=== PATIENT | female | born 1985 | race Caucasian/White ===

== ENCOUNTER 2024-06-10 09:56 | Emergency (ER) | payer OTHER ==
[~2024-06-10] VITALS: Ht 170.2 cm; Wt 106.8 kg
[~2024-06-10 09:56] MED LIST: ATIVAN 1MG T1 MG/TAB PO; BCP TD; CELEBREX 200MG200 MG PO; CEPHALEXIN500 M1 PO; CIPRO 500MG TA500 MG PO; CLARITIN; COLACE 100100 MG/CAP PO; CYMBALTA 60MG60 MG PO; DESYREL 50MG50 MG PO; DIFLUCAN 100MG100 MG PO; DIFLUCAN150 MG PO; EFFEXOR 75M75 MG/TAB PO; FLAGYL500 MG PO; FLEXERIL 1010 MG/TAB PO; FLOMAX 0.40.4 MG/CAP PO; FLOVENT0.11 MG/AC IH; HIBICLENS TP; MELAT3MGTAB PO; MIRALAX PA17 GM/Dose PO; MYSOLINE 5050 MG/TAB PO; NEURONTIN300 MG/CAP PO; NORCO 325 MG-51 TAB PO; NUVARING1 ICR VG; OXY IR5 MG PO; OYSTER SHELL C500 M2 PO; PERCOCET 325 MG1 TA2 PO; PHENERGAN 25 TA25 MG PO; PRENATAL VITAMI1 TAB PO; PROTONIX 40MG T40 MG PO; RT ADVAIR HFA 1112 G IH; RT ADVAIR HFA 412 GM IH; SEPTRA DS 8001 TAB PO; TYLENOL 8 HR PO; VENTOLIN0.09 MG IH; VICODIN 5/5001 UDTAB PO; VITAMIN D 1001000 IU PO; WELLBUTRIN SR150 M1 PO; YAZ 28 3 MG-0.01 TAB PO; ZOFRAN ODT4 MG PO
[2024-06-10 10:00] VITALS: TEMP 98.6
[2024-06-10 10:27] LABS: COLLECTION METHOD CLEAN CATCH
[2024-06-10] MEDS ORDERED: NS 1,000 ML IV ONE (10:30)
[2024-06-10] MEDS ORDERED: Ondansetron 4 MG/2 ML VIAL IV ONE (10:30)
[2024-06-10] MEDS ORDERED: fentaNYL 50 MCG/ML 2 ML VIAL IV ONE (10:30)
[2024-06-10 10:38] LABS: URINE APPEARANCE CLEAR (CLEAR/HAZY); URINE COLOR YELLOW (YELLOW); URINE GLUCOSE Negative (NEGATIVE); URINE PROTEIN(semi-quant) Negative (NEGATIVE)
[2024-06-10 10:39] LABS: URINE BLOOD 3+ (NEGATIVE); URINE KETONE NEGATIVE (NEGATIVE); URINE NITRATE NEGATIVE (NEGATIVE); URINE UROBILINOGEN 0.2 E.U/dL (0.2-1.0)
[2024-06-10 11:03] LABS: BASO # 0.1 K/mm3 (0.0-0.2); BASO % 0.7 % (0.0-2.0); EOS # 0.1 K/mm3 (0.0-0.7); EOS % 1.2 % (0.0-4.0); GRAN # 5.7 K/mm3 (1.4-6.5); GRAN % 69.5 % (42.2-75.2); HEMATOCRIT 40.9 % (37.0-47.0); HEMOGLOBIN 13.5 g/dl (12.5-16.0); LYMPH # 1.8 K/mm3 (1.2-3.4); LYMPH % 22.4 % (20.0-51.0); MEAN CELL VOLUME 89 fl (80.0-100.0); MEAN CORPUSCULAR HEMOGLOBIN 30 pg (27-31); MEAN CORPUSCULAR HGB CONC 33 g/dl (33.0-37.0); MEAN PLATELET VOLUME 9.9 fl (7.4-10.4); MONO # 0.5 K/mm3 (0.1-0.6); PLATELET COUNT 296 K/mm3 (130-400); RED BLOOD COUNT 4.58 M/mm3 (4.10-5.30); REDCELL DISTRIBUTION WIDTH-CV 12.9 % (11.5-14.5)
[2024-06-10 11:25] LABS: ALBUMIN 3.8 g/dL (3.5-5.0); BILIRUBIN,TOTAL 0.3 mg/dL (0.2-1.2); CALCIUM 9.1 mg/dL (8.4-10.2); CREATININE, serum 0.84 mg/dL (0.57-1.11); POTASSIUM 4.2 mEq/L (3.5-4.5); TOTAL PROTEIN 6.9 g/dl (6.2-8.1)
[2024-06-10] MEDS ORDERED: Iohexol 300 - 100 ML VIAL IV ONE (12:05)
[2024-06-10] MEDS ORDERED: NS 100 ML IV SCH (12:06)
[2024-06-10] MEDS ORDERED: NORCO 325 MG-51 TAB PO (13:41)
[2024-06-10 13:55] VITALS: BP 140/106; PULSE 80
== END 2024-06-10 14:00 | disposition home or self-care (01) ==
LOC: COL.ER 09:56
PROVIDERS: Nurse Practitioner
DX: N20.1 Calculus of ureter (principal); Z87.442 Personal history of urinary calculi
CPT/HCPCS: J2405; J3010; J7030; Q9967

== ENCOUNTER 2024-06-15 09:21 | Emergency (ER) | payer OTHER ==
[~2024-06-15] VITALS: Ht 170.2 cm; Wt 106.8 kg
[2024-06-15 09:29] VITALS: TEMP 98.3
[2024-06-15] MEDS ORDERED: NS 1,000 ML IV ONE (10:15)
[2024-06-15] MEDS ORDERED: fentaNYL 50 MCG/ML 2 ML VIAL IV ONE (10:15)
[2024-06-15] MEDS ORDERED: Ketorolac 30 MG/ML VIAL IV ONE (10:15)
[2024-06-15 10:23] LABS: COLLECTION METHOD CLEAN CATCH
[2024-06-15 10:23] LABS: BASO # 0.1 K/mm3 (0.0-0.2); BASO % 0.7 % (0.0-2.0); EOS # 0.2 K/mm3 (0.0-0.7); GRAN # 4.9 K/mm3 (1.4-6.5); GRAN % 60.5 % (42.2-75.2); HEMATOCRIT 42.7 % (37.0-47.0); HEMOGLOBIN 13.9 g/dl (12.5-16.0); LYMPH # 2.3 K/mm3 (1.2-3.4); LYMPH % 29.2 % (20.0-51.0); MEAN CELL VOLUME 91 fl (80.0-100.0); MEAN CORPUSCULAR HEMOGLOBIN 30 pg (27-31); MEAN CORPUSCULAR HGB CONC 33 g/dl (33.0-37.0); MONO # 0.6 K/mm3 (0.1-0.6); MONO % 7.4 % (1.7-9.3); PLATELET COUNT 288 K/mm3 (130-400); RED BLOOD COUNT 4.71 M/mm3 (4.10-5.30)
[2024-06-15 10:35] LABS: ALBUMIN 3.7 g/dL (3.5-5.0); BILIRUBIN,TOTAL 0.4 mg/dL (0.2-1.2); C-REACTIVE PROTEIN 1.16 mg/dL (0.00-0.50); CALCIUM 8.9 mg/dL (8.4-10.2); CREATININE, serum 0.84 mg/dL (0.57-1.11); POTASSIUM 4.1 mEq/L (3.5-4.5); TOTAL PROTEIN 7.1 g/dl (6.2-8.1)
[2024-06-15 10:38] LABS: PH 6.5 (5.0-8.5); URINE APPEARANCE Clear (CLEAR/HAZY); URINE COLOR Yellow (YELLOW); URINE GLUCOSE Negative (NEGATIVE); URINE KETONE Negative (NEGATIVE); URINE PROTEIN(semi-quant) Negative (NEGATIVE); URINE UROBILINOGEN 0.2 E.U/dL (0.2-1.0)
[2024-06-15 10:39] LABS: URINE BLOOD TRACE-INTACT (NEGATIVE); URINE NITRATE Negative (NEGATIVE)
[2024-06-15] MEDS ORDERED: NORCO 325 MG-51 TAB PO (12:09)
[2024-06-15 12:23] VITALS: BP 146/103; PULSE 78
== END 2024-06-15 12:23 | disposition home or self-care (01) ==
LOC: COL.ER 09:21
PROVIDERS: Emergency Medicine
DX: R10.9 Unspecified abdominal pain (principal); Z87.442 Personal history of urinary calculi
CPT/HCPCS: J1885; J3010; J7030

== ENCOUNTER 2024-07-21 13:36 | Emergency (ER) | payer OTHER ==
[~2024-07-21] VITALS: Ht 170.2 cm; Wt 100.0 kg
[2024-07-21 13:58] VITALS: TEMP 98.5
[2024-07-21 16:14] LABS: COLLECTION METHOD CLEAN CATCH
[2024-07-21 16:17] LABS: URINE APPEARANCE CLEAR (CLEAR/HAZY); URINE BLOOD NEGATIVE (NEGATIVE); URINE COLOR YELLOW (YELLOW); URINE GLUCOSE NEGATIVE (NEGATIVE); URINE KETONE NEGATIVE (NEGATIVE); URINE NITRATE NEGATIVE (NEGATIVE); URINE PROTEIN(semi-quant) NEGATIVE (NEGATIVE); URINE UROBILINOGEN 0.2 E.U/dL (0.2-1.0)
[2024-07-21] MEDS ORDERED: Ondansetron 4 MG/2 ML VIAL IV ONE (16:30)
[2024-07-21] MEDS ORDERED: NS 1,000 ML IV ONE (16:30)
[2024-07-21] MEDS ORDERED: Meclizine 25 MG TAB PO ONE (16:30)
[2024-07-21 16:35] LABS: BASO % 0.4 % (0.0-2.0); EOS % 0.3 % (0.0-4.0); GRAN # 7.8 K/mm3 (1.4-6.5); GRAN % 79.8 % (42.2-75.2); HEMATOCRIT 42.5 % (37.0-47.0); HEMOGLOBIN 13.9 g/dl (12.5-16.0); LYMPH # 1.2 K/mm3 (1.2-3.4); LYMPH % 11.8 % (20.0-51.0); MEAN CELL VOLUME 90 fl (80.0-100.0); MEAN CORPUSCULAR HEMOGLOBIN 30 pg (27-31); MEAN CORPUSCULAR HGB CONC 33 g/dl (33.0-37.0); MEAN PLATELET VOLUME 9.5 fl (7.4-10.4); MONO # 0.7 K/mm3 (0.1-0.6); MONO % 7.5 % (1.7-9.3); PLATELET COUNT 232 K/mm3 (130-400); REDCELL DISTRIBUTION WIDTH-CV 11.8 % (11.5-14.5)
[2024-07-21 17:07] LABS: ALANINE AMINOTRANSFERASE 13 U/L (0-55); ALBUMIN 3.7 g/dL (3.5-5.0); ALKALINE PHOSPHATASE 64 U/L (40-150); ANION GAP 10 mmol/L (7-16); AST,SGOT 11 U/L (5-34); BILIRUBIN,TOTAL 0.4 mg/dL (0.2-1.2); BLOOD UREA NITROGEN 8 mg/dL (7-19); CALCIUM 9.2 mg/dL (8.4-10.2); CHLORIDE 108 mEq/L (98-107); CREATININE, serum 0.92 mg/dL (0.57-1.11); GLUCOSE 92 mg/dL (70-99); POTASSIUM 4.1 mEq/L (3.5-4.5); SODIUM 141 mEq/L (136-145); TOTAL PROTEIN 6.8 g/dl (6.2-8.1)
[2024-07-21 17:15] LABS: TROPONIN-I < 0.010 ng/mL (0.00-0.033)
[2024-07-21] MEDS ORDERED: ANTIVERT 25MG25 MG PO (17:55)
[2024-07-21] MEDS ORDERED: ZOFRAN 4MG T4 MG/TAB PO (17:55)
[2024-07-21] MEDS ORDERED: Home Ondansetron ODT 4 MG #2 ODT/PACK PO ONE (18:00)
[2024-07-21] MEDS ORDERED: Home Meclizine 12.5 MG #4 TABS/PACK PO ONE (18:00)
[2024-07-21 18:15] VITALS: BP 136/99; PULSE 74
== END 2024-07-21 18:15 | disposition home or self-care (01) ==
LOC: COL.ER 13:36
PROVIDERS: Physician Assistant
DX: R42 Dizziness and giddiness (principal); F41.0 Panic disorder [episodic paroxysmal anxiety]; F32.A Depression, unspecified; Z79.899 Other long term (current) drug therapy
CPT/HCPCS: J2405; J7030